=== PATIENT | female | born 1955 | race Hispanic/Latino ===

== ENCOUNTER 2019-06-07 10:26 | Emergency (ER) | payer OTHER ==
[2019-06-07] MEDS ORDERED: LIDOCAINE 5% TOPICAL PATCH TP ONE (10:46)
[2019-06-07] MEDS ORDERED: CYCLOBENZAPRINE HCL 10 MG TABLET ONE (10:46)
[2019-06-07] MEDS ORDERED: ACETAMINOPHEN-CODEINE 300/30MG TAB ONE (10:47)
== END 2019-06-07 11:55 | disposition home or self-care (01) ==
LOC: EDH 10:26
DX: M54.5 Low back pain (principal); V49.49XA Driver injured in collision with other motor vehicles in traffic accident, initial encounter; Y93.89 Activity, other specified; Y92.488 Other paved roadways as the place of occurrence of the external cause; Y99.8 Other external cause status; Z90.49 Acquired absence of other specified parts of digestive tract; Z90.710 Acquired absence of both cervix and uterus; Z88.6 Allergy status to analgesic agent

== ENCOUNTER 2023-12-11 14:25 | Emergency (ER) | payer OTHER ==
[~2023-12-11] VITALS: Ht 160 cm; Wt 64.4 kg
[~2023-12-11 14:25] MED LIST: ACET-2079 PO; CELE-125 PO; ESOM40CA66 PO; LATA2.5D14 OU; LEVO75 PO; SUMA25TA9 PO
[2023-12-11 15:02] LABS: BASOPHILS # (AUTO) 0.03 K/uL (0.00-0.20); BASOPHILS % (AUTO) 0.2 % (0.0-5.0); EOSINOPHILS # (AUTO) 0.01 K/uL (0.00-0.70); EOSINOPHILS % (AUTO) 0.1 % (0.0-8.0); HEMATOCRIT 37.6 % (36-48); IMMATURE GRANULOCYTE ABSOLUTE 0.09 K/uL (0-1); LYMPHOCYTES # (AUTO) 0.9 K/uL (1.0-4.8); LYMPHOCYTES % (AUTO) 5.8 % (21.0-51.0); MEAN CORPUSCULAR HEMOGLOBIN 31.2 pg (27.0-33.0); MEAN CORPUSCULAR HGB CONC 33.2 g/dL (32.0-36.0); MEAN CORPUSCULAR VOLUME 93.8 fL (79-99); MONOCYTES # (AUTO) 0.4 K/uL (0.1-1.0); MONOCYTES % (AUTO) 2.5 % (3.0-13.0); NEUTROPHILS # (AUTO) 14.5 K/uL (1.8-7.7); NEUTROPHILS % (AUTO) 90.8 % (40.0-77.0); PLATELET COUNT (AUTO) 404 K/uL (130-400); RED BLOOD CELL COUNT(AUTO) 4.01 MIL/uL (4.00-5.50); RED CELL DISTRIBUTION WIDTH 19.6 % (11.0-15.5)
[2023-12-11 15:09] LABS: CREATININE 0.9 mg/dL (0.5-1.0); POTASSIUM 3.5 mmol/L (3.5-5.1)
[2023-12-11 15:41] LABS: ADD UA MICROSCOPIC YES; APPEARANCE,URINE CLOUDY (CLEAR); BILIRUBIN,URINE NEGATIVE (NEGATIVE); COLOR,URINE YELLOW (YELLOW); GLUCOSE, URINE (UA) NEGATIVE (NEGATIVE); KETONES,URINE 20 mg/dL (NEGATIVE); LEUKOCYTE ESTERASE ,URINE 25 Leu/uL (NEGATIVE); NITRATE,URINE NEGATIVE (NEGATIVE); OCCULT BLOOD,URINE NEGATIVE (NEGATIVE); PROTEIN,URINE 70 mg/dL (NEGATIVE); UROBILINOGEN,URINE 3 mg/dL (0.2-1.0)
[2023-12-11 15:51] LABS: MUCUS,URINE FEW LPF (None Seen); SQUAMOUS EPITHELIAL CELL,UR RARE /HPF (0-2); UNCLASSIFIED CRYSTAL 3 /HPF (None Seen)
[2023-12-11] MEDS ORDERED: LACTATED RINGERS 1000ML 1,000 ML IV ONE (16:30)
[2023-12-11] MEDS ORDERED: IOHEXOL-350 75 ML VIAL IV ONE (16:32)
[2023-12-11] MEDS ORDERED: DIATR MEGLU/DIATRIZOATE SODIUM 30 ML BOTTLE ONE (16:41)
[2023-12-11] MEDS: 0.9%NACL 1000ML 1,000 ML IV SCH (16:55)
[2023-12-11] MEDS: ONDANSETRON 4MG INJ IVP ONE (16:56)
[2023-12-11] MEDS: PANTOPRAZOLE 40 MG/VIAL IVP ONE (16:56)
[2023-12-11] MEDS ORDERED: ONDA-243 PO (19:11)
[2023-12-11] MEDS ORDERED: METR-172 PO (19:12)
[2023-12-11 19:40] VITALS: BP 129/61; PULSE 61; RESP 16; O2SAT 100
== END 2023-12-11 19:54 | disposition home or self-care (01) ==
LOC: EDH 14:25
DX: A05.9 Bacterial foodborne intoxication, unspecified (principal); K56.699 Other intestinal obstruction unspecified as to partial versus complete obstruction; E78.00 Pure hypercholesterolemia, unspecified; I10 Essential (primary) hypertension; Z88.6 Allergy status to analgesic agent; Z88.5 Allergy status to narcotic agent; Z79.899 Other long term (current) drug therapy; Z98.890 Other specified postprocedural states
CPT/HCPCS: 99285; 74177; 96374; 96375; 80048; 85025; 81001; 36415; 74018; Q9963; J7030; J2405; J2470; Q9967

== ENCOUNTER → 2024-02-15 | Outpatient (CLI) | payer OTHER ==
[~2024-02-15] MED LIST changes: +METR-172 PO; +ONDA-243 PO
== END | disposition home or self-care (01) ==
LOC: LAB 14:24
PROVIDERS: ATTEND Student in an Organized Health Care Education/Training Program
DX: R10.9 Unspecified abdominal pain (principal); K63.2 Fistula of intestine
CPT/HCPCS: 36415; 82565; 84520

== ENCOUNTER → 2024-02-20 | Outpatient (CLI) | payer OTHER ==
[~2024-02-20] MED LIST changes: +IOHEXOL-350 75 ML VIAL IV ONE
== END | disposition home or self-care (01) ==
LOC: RAH 09:03
PROVIDERS: ATTEND Student in an Organized Health Care Education/Training Program
DX: K63.2 Fistula of intestine (principal); R10.9 Unspecified abdominal pain
CPT/HCPCS: 74177; Q9967